=== PATIENT | male | born 1945 | race Caucasian/White ===

== ENCOUNTER → 2016-12-15 | Outpatient (CLI) | payer OTHER, MEDICARE ==
[~2016-12-15] MED LIST: AMBIEN 5 MG TABL5 M1 PO; ASPIRIN EC81 M1 PO; BACTRIM DS TAB1 EACH PO; BENTYL 10 MG CA10 M1 PO; BUDESONIDE EC3 MG PO; DAILY VITE1 EACH PO; DOXYCYCLINE 10100 M1 PO; FISH OIL 1,001000 M2 PO; FLAGYL500 MG PO; HYDROCODONE-AP1 EAC6 PO; KLOR-CON20 ME1 PO; MEDROL DOSPAK21 TA1 PO; NORCO 5-325 TA1 EACH PO; PREDNISONE 20 M20 MG; SIMVASTATIN40 MG PO; TESSALON PERLE100 MG PO; TYLENOL325 MG PO
== END ==
LOC: MRI 12:07
DX: M75.101 Unspecified rotator cuff tear or rupture of right shoulder, not specified as traumatic (principal)

== ENCOUNTER → 2017-09-04 | Outpatient (CLI) | payer OTHER, MEDICARE | LOC: RAD 15:20 | DX: M47.892 Other spondylosis, cervical region (principal); M40.40 Postural lordosis, site unspecified; Q76.49 Other congenital malformations of spine, not associated with scoliosis ==

== ENCOUNTER → 2018-09-25 | Outpatient (CLI) | payer OTHER, MEDICARE | LOC: MRI 09:19 | DX: S46.811A Strain of other muscles, fascia and tendons at shoulder and upper arm level, right arm, initial encounter (principal); S43.401A Unspecified sprain of right shoulder joint, initial encounter; M19.011 Primary osteoarthritis, right shoulder; M62.511 Muscle wasting and atrophy, not elsewhere classified, right shoulder; M25.411 Effusion, right shoulder; M25.711 Osteophyte, right shoulder; X58.XXXA Exposure to other specified factors, initial encounter; Y93.89 Activity, other specified; Y92.89 Other specified places as the place of occurrence of the external cause; Y99.8 Other external cause status ==

== ENCOUNTER → 2019-07-05 | Outpatient (CLI) | payer OTHER, MEDICARE | LOC: RAD 08:49 | DX: L03.031 Cellulitis of right toe (principal); M10.9 Gout, unspecified; M79.89 Other specified soft tissue disorders ==

== ENCOUNTER → 2021-04-27 | Outpatient (CLI) | payer OTHER, MEDICARE | LOC: RAD 12:22 | PROVIDERS: ATTEND Nurse Practitioner | DX: M20.11 Hallux valgus (acquired), right foot (principal); M20.12 Hallux valgus (acquired), left foot; M79.672 Pain in left foot ==